=== PATIENT | female | born 1965 | race Two or more races ===

== ENCOUNTER 2019-08-06 11:02 | Inpatient (IN) | payer OTHER ==
[~2019-08-06] VITALS: Ht 165.1 cm; Wt 80.7 kg
[2019-08-06] MEDS ORDERED: AMITRIPTYLINE H50 MG (12:22)
[2019-08-06] MEDS ORDERED: CLONAZEPAM1 MG (12:22)
[2019-08-06] MEDS ORDERED: WELLBUTRIN SR100 MG (12:22)
[2019-08-06] MEDS ORDERED: ABILIFY2 MG (12:22)
[2019-08-12] MEDS ORDERED: OXYC1TAB9 PO (07:04)
== END 2019-08-12 09:01 | disposition home or self-care (01) | DRG 743 ==
LOC: ADM 11:45 → OB/GYN 08-11 05:15 → O/R 08-11 05:15 → OB/GYN 08-11 10:40 → CIR.AMB 08-11 11:45 → EDSTATUS 08-11 11:45 → OB/GYN 08-11 11:45
PROVIDERS: Surgery; ADMIT Obstetrics & Gynecology Gynecology
PROC: 0DNW4ZZ Release Peritoneum, Percutaneous Endoscopic Approach (ICD-10-PCS; 2019-08-11)
PROC: 0UT74ZZ Resection of Bilateral Fallopian Tubes, Percutaneous Endoscopic Approach (ICD-10-PCS; principal; 2019-08-11 10:45)
PROC: 0UT14ZZ Resection of Left Ovary, Percutaneous Endoscopic Approach (ICD-10-PCS; 2019-08-11 10:45)
DX: N70.11 Chronic salpingitis (principal); K66.0 Peritoneal adhesions (postprocedural) (postinfection); N83.8 Other noninflammatory disorders of ovary, fallopian tube and broad ligament; Q50.39 Other congenital malformation of ovary

== ENCOUNTER 2022-04-14 13:28 | Emergency (ER) | payer OTHER ==
[~2022-04-14] VITALS: Ht 165.1 cm; Wt 79.8 kg
[~2022-04-14 13:28] MED LIST: ABILIFY2 MG; AMITRIPTYLINE H50 MG; CLONAZEPAM1 MG; HUMIRA40 MG/0.2; OXYC1TAB9 PO; PEPCID AC20 MG PO; WELLBUTRIN SR100 MG; ZOFRAN8 MG PO
[2022-04-14] MEDS ORDERED: UCERIS9 MG (13:43)
[2022-04-14] MEDS ORDERED: UCERIS9 MG PO (13:46)
[2022-04-14] MEDS ORDERED: TUSNEL LIQUID178 ML PO (17:16)
== END 2022-04-14 17:20 | disposition home or self-care (01) ==
LOC: ER 13:28
DX: R06.02 Shortness of breath (principal); Z20.822 Contact with and (suspected) exposure to COVID-19; K58.9 Irritable bowel syndrome, unspecified

== ENCOUNTER 2023-04-09 06:04 | Day surgery (SDC) | payer OTHER ==
[~2023-04-09] VITALS: Ht 165.1 cm; Wt 78.9 kg
[~2023-04-09 06:04] MED LIST changes: +TUSNEL LIQUID178 ML PO; +UCERIS9 MG; +UCERIS9 MG PO
[2023-04-09] MEDS ORDERED: PERCOCET 5-3251 EACH PO (11:15)
[2023-04-09] MEDS ORDERED: DERMOPLAST PAIN78 GM TOP (11:16)
[2023-04-09] MEDS ORDERED: NEURONTIN300 MG PO (11:16)
== END 2023-04-09 14:15 | disposition home or self-care (01) ==
LOC: CIR.AMB 06:04
PROVIDERS: ATTEND Surgery
DX: K64.2 Third degree hemorrhoids (principal); K62.5 Hemorrhage of anus and rectum; K62.3 Rectal prolapse; N81.6 Rectocele; K58.0 Irritable bowel syndrome with diarrhea; Z20.822 Contact with and (suspected) exposure to COVID-19; I10 Essential (primary) hypertension

== ENCOUNTER 2023-04-10 17:02 | Emergency (ER) | payer OTHER ==
[~2023-04-10] VITALS: Ht 165.1 cm; Wt 77.6 kg
[~2023-04-10 17:02] MED LIST changes: +DERMOPLAST PAIN78 GM TOP; +NEURONTIN300 MG PO; +PERCOCET 5-3251 EACH PO
== END 2023-04-10 17:56 | disposition home or self-care (01) ==
LOC: ER 17:02
DX: R20.2 Paresthesia of skin (principal); Z98.890 Other specified postprocedural states

== ENCOUNTER 2024-01-02 08:50 | Outpatient (CLI) | payer OTHER | END 2024-01-02 09:03 | disposition home or self-care (01) | LOC: TOM 08:50 | PROVIDERS: ATTEND Surgery | DX: K62.5 Hemorrhage of anus and rectum (principal); K58.0 Irritable bowel syndrome with diarrhea ==

== ENCOUNTER 2024-06-13 11:53 | Emergency (ER) | payer OTHER ==
[~2024-06-13] VITALS: Ht 165.1 cm; Wt 67.6 kg
[~2024-06-13 11:53] MED LIST changes: +INTESTINEX680 M1 PO; +LEVSIN/SL0.125 MG SL; +TRAM1TAB98 PO
[2024-06-13 14:44] LABS: HEMATOCRIT 42.5 % (36.0-45.00); HEMOGLOBIN 14.4 g/dL (12.0-15.00); MEAN CELL VOLUME 84.4 fL (80.00-100.00); MEAN CORPUSCULAR HEMOGLOBIN 28.6 pg (27.00-32.0); MEAN CORPUSCULAR HGB CONC 33.9 g/dl (32.0-36.0); PLATELET COUNT 228 K/uL (150-450); RED BLOOD COUNT 5.04 M/uL (4.00-6.00); RED CELL DISTRIBUTION WIDTH 14.9 % (11.5-14.5)
[2024-06-13 14:59] LABS: URINE APPEARANCE Clear; URINE BILIRRUBIN Negative (NEGATIVE); URINE BLOOD Negative; URINE COLOR Yellow; URINE GLUCOSE Negative (NEGATIVE); URINE KETONE Trace (NEGATIVE); URINE LEUKOCYTE Negative; URINE NITRATE Negative; URINE PROTEIN Negative (NEGATIVE); URINE UROBILINOGEN 0.2 E.U./dl
[2024-06-13 15:03] LABS: URINE BACTERIA 31.4 uL (0.0-1933); URINE EPITHELIAL CELLS 8.6 uL (0.0-38.8); URINE WBC 3.5 uL (0.0-23.2)
[2024-06-13 15:06] LABS: ALBUMIN 3.6 gm/dL (3.4-5.0); BILIRUBIN TOTAL 0.86 mg/dL (0.3-1.2); BILIRUBIN,CONJUGATED 0.15 mg/dL (0.0-0.2); BILIRUBIN,UNCONJUGATED 0.71 mg/dL (0.0-0.6); CALCIUM 8.9 mg/dL (8.5-10.1); CREATININE SERUM 0.59 mg/dL (0.55-1.02); GFR 105.06; POTASSIUM 3.43 mEq/L (3.5-5.1); TOTAL PROTEIN 6.9 gm/dL (6.4-8.2)
[2024-06-13 15:35] LABS: URINE CAST 0.15 uL (0.0-1.40)
[2024-06-13] MEDS ORDERED: LACTULOSE 10 G/15 ML ML PO STA (16:36)
[2024-06-13] MEDS ORDERED: MAGNESIUM HYDROXIDE 30 ML BLIST.PACK PO STA (16:36)
[2024-06-13] MEDS ORDERED: MAGNESIUM HYDROXIDE 30 ML BLIST.PACK PO ONE (16:45)
[2024-06-13] MEDS ORDERED: LACTULOSE 20 G/30 ML BLIST.PACK ONE (16:45)
== END 2024-06-13 16:55 | disposition home or self-care (01) ==
LOC: ER 11:54
PROVIDERS: General Practice
DX: K56.41 Fecal impaction (principal); I10 Essential (primary) hypertension

== ENCOUNTER 2024-11-20 19:08 | Emergency (ER) | payer OTHER ==
[~2024-11-20] VITALS: Ht 165.1 cm; Wt 63.5 kg
[2024-11-20] MEDS ORDERED: [UNRECOGNIZED DRUG - OTHER] PO (19:21)
[2024-11-20] MEDS ORDERED: HUMIRA40 MG/0.2 SQ (19:21)
[2024-11-20] MEDS ORDERED: PANTOPRAZOLE SODIUM 40 MG in 0.9 % SODIUM CHLORIDE 8 ML IV PUSH STA (20:00)
[2024-11-20] MEDS ORDERED: CHOLESTYRAMINE/ASPARTAME LIGHT 4 G/PKT PACKET PO ONE (20:00)
[2024-11-20] MEDS ORDERED: 0.9 % SODIUM CHLORIDE 1,000 ML IV SCH (20:15)
[2024-11-20] MEDS ORDERED: ACETAMINOPHEN 500 MG GEL..CAP PO ONE (20:29)
[2024-11-20] MEDS ORDERED: DIPHENHYDRAMINE HCL 50 MG/ML VIAL 1ML ONE (20:42)
[2024-11-20] MEDS ORDERED: METHYLPREDNISOLONE SOD SUCC 125 MG VIAL ONE (20:43)
[2024-11-20] MEDS ORDERED: METHYLPREDNISOLONE SOD SUCC 125 MG VIAL IV ONE (20:45)
[2024-11-20] MEDS ORDERED: DIPHENHYDRAMINE HCL 50 MG/ML VIAL 1ML IV ONE (20:45)
[2024-11-20 20:54] LABS: HEMATOCRIT 45.7 % (36.0-45.00); HEMOGLOBIN 15.3 g/dL (12.0-15.00); MEAN CELL VOLUME 84.6 fL (80.00-100.00); MEAN CORPUSCULAR HEMOGLOBIN 28.4 pg (27.00-32.0); MEAN CORPUSCULAR HGB CONC 33.5 g/dl (32.0-36.0); PLATELET COUNT 246 K/uL (150-450); RED CELL DISTRIBUTION WIDTH 14.5 % (11.5-14.5)
[2024-11-20 21:24] LABS: ALBUMIN 3.8 gm/dL (3.4-5.0); BILIRUBIN TOTAL 0.57 mg/dL (0.3-1.2); CREATININE SERUM 0.56 mg/dL (0.55-1.02); GFR 111.58; GLOBULINA 3.6 G/DL (2.4-3.5); POTASSIUM 3.8 mEq/L (3.5-5.1); TOTAL PROTEIN 7.4 gm/dL (6.4-8.2)
[2024-11-20] MEDS ORDERED: INTESTINEX680 M1 PO (22:03)
[2024-11-20] MEDS ORDERED: QUESTRAN LIGHT210 GM PO (22:03)
== END 2024-11-20 23:03 | disposition home or self-care (01) ==
LOC: ER 19:11
PROVIDERS: General Practice
DX: R19.7 Diarrhea, unspecified (principal); Z88.8 Allergy status to other drugs, medicaments and biological substances

== ENCOUNTER 2025-01-02 09:00 | Inpatient (IN) | payer OTHER ==
[~2025-01-02] VITALS: Ht 165.1 cm; Wt 63.5 kg
[~2025-01-02 09:00] MED LIST changes: +HUMIRA40 MG/0.2 SQ; +QUESTRAN LIGHT210 GM PO; +[UNRECOGNIZED DRUG - OTHER] PO
[2025-01-02 11:09] LABS: HEMATOCRIT 44.3 % (36.0-45.00); HEMOGLOBIN 15.2 g/dL (12.0-15.00); MEAN CELL VOLUME 83.7 fL (80.00-100.00); MEAN CORPUSCULAR HEMOGLOBIN 28.6 pg (27.00-32.0); MEAN CORPUSCULAR HGB CONC 34.2 g/dl (32.0-36.0); PLATELET COUNT 274 K/uL (150-450)
[2025-01-02 11:33] LABS: PARTIAL THROMBOPLASTIN TIME 27.4 SECONDS (22.0-34.0); PROTHROMBIN TIME 10.9 SECONDS (9.0-11.5)
[2025-01-02] MEDS ORDERED: CLONAZEPAM2 MG PO (11:33)
[2025-01-02 11:37] VITALS: BP 123/82
[2025-01-02 11:47] LABS: PH,URINE 5.5 (5.0-8.0); URINE APPEARANCE Clear; URINE BILIRRUBIN Negative (NEGATIVE); URINE BLOOD Negative; URINE COLOR Yellow; URINE GLUCOSE Negative (NEGATIVE); URINE KETONE Negative (NEGATIVE); URINE LEUKOCYTE Small; URINE NITRATE Negative; URINE PROTEIN Negative (NEGATIVE); URINE UROBILINOGEN 0.2 E.U./dl
[2025-01-02 11:51] LABS: URINE BACTERIA 611.8 uL (0.0-1933); URINE EPITHELIAL CELLS 34.5 uL (0.0-38.8); URINE RBC 6.7 uL (0.0-20.8)
[2025-01-02 12:02] LABS: ALBUMIN 3.7 gm/dL (3.4-5.0); BILIRUBIN TOTAL 0.57 mg/dL (0.3-1.2); CALCIUM 9.1 mg/dL (8.5-10.1); CREATININE SERUM 0.51 mg/dL (0.55-1.02); GFR 124.29; GLOBULINA 2.9 G/DL (2.4-3.5); POTASSIUM 3.9 mEq/L (3.5-5.1); TOTAL PROTEIN 6.6 gm/dL (6.4-8.2)
[2025-01-07] MEDS ORDERED: METRONIDAZOLE/SODIUM CHLORIDE 500 MG/100 ML PIGGYBACK IV SCH (08:15)
[2025-01-07] MEDS ORDERED: POVIDONE-IODINE 118 ML BOTT TOP SCH (08:15)
[2025-01-07] MEDS ORDERED: HEMOSTATIC MATRIX 1 KIT KIT TOP SCH (08:15)
[2025-01-07] MEDS ORDERED: CEFTRIAXONE SODIUM 2,000 MG VIAL IV SCH (08:15)
[2025-01-07] MEDS ORDERED: LIDOCAINE HCL 1% 10ML VIAL IJ SCH (08:15)
[2025-01-07] MEDS ORDERED: BUPIVACAINE HCL/PF 0.25% 30ML VIAL InF SCH (08:15)
[2025-01-07] MEDS ORDERED: DIBUCAINE 30 GM TUBE RECTAL SCH (08:15)
[2025-01-07] MEDS ORDERED: RINGERS SOLUTION,LACTATED 1,000 ML IV SCH (09:30)
[2025-01-07] MEDS ORDERED: OxyCODONE HCL 5 MG TABLET (ROXICODONE) PO PRN (09:30)
[2025-01-07] MEDS ORDERED: ONDANSETRON HCL 2 MG/ML VIAL IV PRN (09:30)
[2025-01-07] MEDS ORDERED: DEXTROSE 50 % IN WATER 0.5 G/ML DISP.SYRIN IV PRN (09:30)
[2025-01-07] MEDS ORDERED: MORPHINE SULFATE 4 MG/ML CARTRIDGE IV PRN (09:30)
[2025-01-07 10:24] LABS: HEMATOCRIT 39.7 % (36.0-45.00); HEMOGLOBIN 13.3 g/dL (12.0-15.00); MEAN CELL VOLUME 84.8 fL (80.00-100.00); MEAN CORPUSCULAR HEMOGLOBIN 28.5 pg (27.00-32.0); MEAN CORPUSCULAR HGB CONC 33.6 g/dl (32.0-36.0); PLATELET COUNT 205 K/uL (150-450); RED BLOOD COUNT 4.67 M/uL (4.00-6.00)
[2025-01-07] MEDS ORDERED: MEPERIDINE HCL 25 MG/ML AMPUL IV ONE (12:05)
[2025-01-07] MEDS ORDERED: HYOSCYAMINE SULFATE 0.125 MG TAB.SUBL SL SCH (13:00)
[2025-01-07] MEDS ORDERED: SIMETHICONE 125 MG CAPSULE PO SCH (13:00)
[2025-01-07] MEDS ORDERED: MORPHINE SULFATE 4 MG/ML VIAL IV ONE ×2 (13:45→16:00)
[2025-01-07] MEDS ORDERED: ACETAMINOPHEN 500 MG GEL..CAP PO SCH (14:00)
[2025-01-07] MEDS ORDERED: POLYETHYLENE GLYCOL 3350 17 GM BLIST.PACK PO SCH (17:00)
[2025-01-07] MEDS ORDERED: GABAPENTIN 300 MG CAPSULE PO SCH (17:00)
[2025-01-07] MEDS ORDERED: METOCLOPRAMIDE HCL 5 MG/ML VIAL IV SCH (17:00)
[2025-01-07 18:30] VITALS: BP 95/56; O2SAT 96
[2025-01-07] MEDS ORDERED: FAMOTIDINE/PF 20 MG/2 ML VIAL IV PUSH SCH (21:00)
[2025-01-08 00:40] VITALS: BP 97/58; O2SAT 97
[2025-01-08 06:44] LABS: HEMATOCRIT 39.5 % (36.0-45.00); HEMOGLOBIN 13.3 g/dL (12.0-15.00); MEAN CELL VOLUME 84.7 fL (80.00-100.00); MEAN CORPUSCULAR HEMOGLOBIN 28.5 pg (27.00-32.0); MEAN CORPUSCULAR HGB CONC 33.7 g/dl (32.0-36.0); PLATELET COUNT 195 K/uL (150-450); RED BLOOD COUNT 4.66 M/uL (4.00-6.00); RED CELL DISTRIBUTION WIDTH 14.3 % (11.5-14.5)
[2025-01-08 07:36] LABS: ALBUMIN 2.8 gm/dL (3.4-5.0); CALCIUM 8.5 mg/dL (8.5-10.1); CREATININE SERUM 0.46 mg/dL (0.55-1.02); GFR 140.01; MAGNESIUM 1.9 mg/dL (1.8-2.4); PHOSPHOROUS 4.2 mg/dL (2.5-4.9); POTASSIUM 4.28 mEq/L (3.5-5.1)
[2025-01-08 08:25] VITALS: BP 108/66; O2SAT 100
[2025-01-08] MEDS ORDERED: LACTULOSE 20 G/30 ML BLIST.PACK PO SCH (09:00)
[2025-01-08] MEDS ORDERED: LACTOBACILLUS ACIDOPHILUS 1 CAP CAP PO SCH (09:00)
[2025-01-08] MEDS ORDERED: NEURONTIN300 MG PO (13:23)
[2025-01-08] MEDS ORDERED: CELECOXIB200 MG PO (13:23)
[2025-01-08] MEDS ORDERED: INTESTINEX680 M1 PO (13:23)
[2025-01-08] MEDS ORDERED: ENOXAPARIN SODIUM 40 MG/0.4 ML SYRINGE SUBCUTANEO SCH (17:00)
[2025-01-09] MEDS ORDERED: ENOXAPARIN SODIUM 40 MG/0.4 ML SYRINGE SUBCUTANEO SCH (09:00)
== END 2025-01-08 13:55 | disposition home or self-care (01) | DRG 748 ==
LOC: O/R 01-07 05:30 → SURH 01-07 05:30 → O/R 01-07 15:25 → SURG 01-07 16:12 → SURH 01-07 16:36
PROVIDERS: ADMIT Surgery; ATTEND Surgery
PROC: 3E0T3BZ Introduction of Anesthetic Agent into Peripheral Nerves and Plexi, Percutaneous Approach (ICD-10-PCS; 2025-01-07)
PROC: 0JQC0ZZ Repair Pelvic Region Subcutaneous Tissue and Fascia, Open Approach (ICD-10-PCS; principal; 2025-01-07 09:00)
DX: N81.6 Rectocele (principal); K59.02 Outlet dysfunction constipation